=== PATIENT | male | born 1965 | race Two or more races ===

== ENCOUNTER 2019-04-10 09:39 | Inpatient (IN) | payer MEDICAID, OTHER ==
[~2019-04-10] VITALS: Ht 162.6 cm; Wt 65.8 kg
[~2019-04-10 09:39] MED LIST: BUPR300T52 PO; OLAN15TA3 PO
--- NOTE | 2019-04-10 09:50 | NUR ---
BIB SELF 53 YEAR OLD MAKE C/O LOWER ABDOMINAL PAIN W/ N/V STARTED AT 0300. DIARRHEA X 3 DAYS. ALERT AND ORIENTED X4 BREATHING EVEN AND UNLABORED WITH NO DISTRESS NOTED. PATIENT IS AMBULATORY. SKIN INTACT. WAITING TO BE SEEN BY
[2019-04-10] MEDS ORDERED: MORPHINE SULFATE INJ 4 MG/ML DISP.SYRIN ONE (10:06)
[2019-04-10] MEDS ORDERED: ONDANSETRON HCL/PF 4 MG/2 ML VIAL ONE (10:06)
[2019-04-10 10:15] LABS: BASOPHILS # (AUTO) 0.1 /CMM (0.0-0.2); BASOPHILS % (AUTO) 0.8 % (0.0-2.0); EOSINOPHILS % (AUTO) 0.1 % (0.0-6.0); HEMATOCRIT 50 % (39-51); HEMOGLOBIN 17.7 g/dL (13.5-17.5); LYMPHOCYTES % (AUTO) 9.6 % (20.0-44.0); MEAN CORPUSCULAR HGB CONC 35 g/dl (31.0-36.0); MEAN CORPUSCULAR VOLUME 101 fL (80-96); MONOCYTES # (AUTO) 0.4 /CMM (0.1-1.30); MONOCYTES % (AUTO) 3.9 % (2.0-12.0); NEUTROPHILS % (AUTO) 85.6 % (43.0-81.0); PLATELET COUNT (AUTO) 277 /CMM (150-450); RED BLOOD CELL COUNT(AUTO) 5.01 MIL/uL (4.5-6.0); WHITE BLOOD COUNT (AUTO) 10.5 K/uL (4.3-11.0)
--- NOTE | 2019-04-10 10:18 | NUR ---
RAD AT BEDSIDE TO TAKE PATIENT FOR CT SCAN
[2019-04-10 10:26] LABS: CALCIUM, SERUM 10.1 mg/dL (8.5-10.1); CREATININE 1.2 mg/dL (0.6-1.3); POTASSIUM 3.6 mmol/L (3.5-5.1)
[2019-04-10] MEDS ORDERED: IV NS 0.9% 1,000 ML BAG IV ONE ×2 (10:30→11:30)
[2019-04-10] MEDS ORDERED: ONDANSETRON HCL/PF 4 MG/2 ML VIAL IVP ONE (10:30)
[2019-04-10] MEDS ORDERED: MORPHINE SULFATE INJ 2 MG/ML DISP.SYRIN IV ONE (10:30)
[2019-04-10 10:31] LABS: ALBUMIN 4.8 g/dL (3.4-5.0); BILIRUBIN,DIRECT 0.2 mg/dL (0.0-0.2); TOTAL PROTEIN, SERUM 8.8 g/dL (6.4-8.2)
[2019-04-10] MEDS ORDERED: METRONIDAZOLE 500MG/ NS 100ML 100 ML IV ONE (11:21)
[2019-04-10] MEDS ORDERED: FLAGYL/NS RTU 500 MG/100 ML PIGGYBACK IV ONE (11:30)
[2019-04-10] MEDS ORDERED: PIPERACILLIN /TAZOBACTAM 3.375 G in IV D5W 50 ML IV ONE (11:30)
--- NOTE | 2019-04-10 12:03 | NUR ---
CALLED [facility], PAGED RASHID ALAS
--- NOTE | 2019-04-10 12:26 | NUR ---
CALLED NURSING SUP FOR MEDSURG BED
[2019-04-10] MEDS ORDERED: HYDROCODONE/APAP 5/325MG 1 EACH TABLET PO PRN (12:30)
[2019-04-10] MEDS ORDERED: ACETAMINOPHEN 325 MG TABLET PO PRN (12:30)
[2019-04-10] MEDS ORDERED: Z GUARD REMEDY 2 OZ OINT TP PRN (12:30)
[2019-04-10] MEDS ORDERED: MAG HYDROX/AL HYDROX/SIMETH 30 ML UDC PO PRN (12:30)
[2019-04-10] MEDS ORDERED: ONDANSETRON HCL/PF 4 MG/2 ML VIAL IVP PRN (12:30)
[2019-04-10] MEDS ORDERED: MAGNESIUM HYDROXIDE 30 ML UDC PO PRN (12:30)
[2019-04-10] MEDS ORDERED: MORPHINE SULFATE INJ 2 MG/ML DISP.SYRIN IV PRN (12:30)
--- NOTE | 2019-04-10 12:45 | NUR ---
REPORT GIVEN TO ELIZABETH TO CONTINUE MANISHA
--- NOTE | 2019-04-10 13:15 | NUR ---
MS RN OPENING NOTES RECEIVED PATIENT VIA GURSTEW. REPORT GIVEN BY BABAK NURSE. PATIENT ALERT AND ORIENTED X4. PATIENT STATED HE WAS ON HIS WAY TO SCHOOL RIDING A BUS THEN HE VOMITED. PATIENT COMPLAINED OF MID AND LOWER ABD PAIN WITH ASSOCIATED N/V. AMBULATORY WITH UNSTEADY GAIT, WEAK. PATIENT STATES HE'S A SMOKER BUT WILL NOT SMOKE DURING HOSPITALIZATION. RIGHT AC # 18 INTACT AND PATENT. ALL BELONGINGS ACCOUNTED FOR. SKIN ASSESSMENT DONE WITH SKIN INTACT. ORIENTED PATIENT TO ROOM, CALL LIGHT AND ENVIRONMENT. PATIENT SEEN AND EXAMINED BY DR. ALAS. BED IN LOWEST POSITION, LOCKED. CALL LIGHT WITHIN REACH. BED ALARM ON.
[2019-04-10] MEDS: IV D5/0.45 NACL 1,000 ML IV PRN (14:17)
[2019-04-10] MEDS: ENOXAPARIN SODIUM 40 MG/0.4 ML DISP.SYRIN SQ SCH (14:53)
[2019-04-10 16:05] VITALS: BP 119/65
[2019-04-10] MEDS: PIPERACILLIN /TAZOBACTAM 3.375 G in IV D5W 50 ML IV SCH ×2 (18:10→23:30)
[2019-04-10] MEDS: OLANZAPINE 10 MG TABLET PO SCH (18:10)
--- NOTE | 2019-04-10 18:34 | NUR ---
MS RN CLOSING NOTES ALERT AND ORIENTED X4. NO SOB. ON O2 VIA NC @ 2L/MIN JESICA WELL. DENIES ANY C/O PAIN NOR DISCOMFORT AT THIS TIME. ALISHA PICC LINE DOUBLE LUMEN INTACT AND PATENT, DRESSING CHANGE JESICA WELL. RIGHT JUGULAR CATHETER SITE INTACT, DRESSING CHANGED BY DIALYSIS NURSE. PATIENT CURRENTLY RECEIVING DIALYSIS TREATMENT AT THIS TIME. ABLE TO VERBALIZE NEEDS. IN NO APPARENT DISTRESS. BED IN LOWEST POSITION. CALL LIGHT WITHIN REACH. PATIENT ABLE TO VERBALIZE NEEDS. IN NO APPARENT DISTRESS. ENDORSED TO ONCOMING NURSE FOR CONTINUITY OF CARE. Addendum: 04/10/19 at 183 by VIRA HOFFMANN RN ERROR ENTRY IN CHARTING Addendum: 04/10/19 at 1847 by VIRA HOFFMANN RN ERROR ENTRY CHARTING FOR 1847
--- NOTE | 2019-04-10 18:34 | NUR ---
DISREGARD CHARTING FOR 183. ERROR ENTRY.
--- NOTE | 2019-04-10 18:44 | NUR ---
MS RN CLOSING NOTES PATIENT RESTING COMFORTABLY IN BED. NO SOB. HOB ELEVATED. DENIES ANY C/O PAIN NOR DISCOMFORT AT THIS TIME. NO OTHER EPISODE OF N/V/D OBSERVED DURING THE SHIFT. RIGHT AC # 18 INTACT AND PATENT INFUSING D5 1/2 NS @ 75 ML/HR JESICA WELL. BED IN LOWEST POSITION, LOCKED. CALL LIGHT WITHIN REACH. IN NO APPARENT DISTRESS.
--- NOTE | 2019-04-10 19:00 | NUR ---
RN MS OPENING NOTES RECEIVED PATIENT IN BED AWAKE ALERT AND ORIENTED X4, VERBALLY RESPONSIVE, RESPIRATIONS EVEN AND UNLABORED WITH EQUAL RISE AND FALL OF CHEST, DENIES ANY PAIN OR DISCOMFORT AT THIS TIME, DENIES NAUSEA AT THIS TIME, IV TO RIGHT AC #18G INTACT AND PATENT, NO REDNESS, NO INFILTRATION , IVF RUNNING ORDERED, PATIENT AWARE OF CLEAR LIQUID DIET ORDERED, ORIENTED TO STAFF AND CALL LIGHT AND KEPT WITHIN REACH, SAFETY PRECAUTIONS IN PLACE, LOW BED AND LOCKED, TOILETING AND FLUIDS OFFERED ALL NEEDS ATTENDED AT THIS TIME WILL CONTINUE TO MONITOR AND ATTEND TO NEEDS.
[2019-04-10 20:00] VITALS: BP 98/51
[2019-04-10] MEDS: METRONIDAZOLE 500MG/ NS 100ML 500 MG in PREMIX 1 EA IV SCH (20:05)
[2019-04-10] MEDS: SIMVASTATIN 10 MG TABLET PO SCH (21:45)
[2019-04-11] MEDS: METRONIDAZOLE 500MG/ NS 100ML 500 MG in PREMIX 1 EA IV SCH ×3 (03:23→20:11)
[2019-04-11] MEDS: PIPERACILLIN /TAZOBACTAM 3.375 G in IV D5W 50 ML IV SCH ×4 (05:10→23:57)
[2019-04-11] MEDS: IV D5/0.45 NACL 1,000 ML IV PRN (05:14)
--- NOTE | 2019-04-11 06:23 | NUR ---
RN MS CLOSING NOTES PATIENT IN BED AWAKE ALERT AND ORIENTED X4, VERBALLY RESPONSIVE, RESPIRATIONS EVEN AND UNLABORED WITH EQUAL RISE AND FALL OF CHEST, DENIES ANY PAIN OR DISCOMFORT AT THIS TIME, DENIES NAUSEA AT THIS TIME, IV TO RIGHT AC #18G INTACT AND PATENT, NO REDNESS, NO INFILTRATION , IVF RUNNING ORDERED, CALL LIGHT KEPT WITHIN REACH, SAFETY PRECAUTIONS IN PLACE, LOW BED AND LOCKED, BED ALARM IN PLACE, URINAL WITHIN REACH , NO BM THIS SHIFT , FLUIDS OFFERED ALL NEEDS ATTENDED AT THIS TIME WILL CONTINUE TO MONITOR AND ATTEND TO NEEDS AND ENDORSE TO NEXT SHIFT FOR CONTINUITY OF CARE. PATIENT AWARE NEED STOOL COLLECTION ORDERED BY .
[2019-04-11 06:54] LABS: BASOPHILS % (AUTO) 0.3 % (0.0-2.0); EOSINOPHILS % (AUTO) 1.2 % (0.0-6.0); HEMATOCRIT 41 % (39-51); LYMPHOCYTES # (AUTO) 2.7 /CMM (0.8-4.8); LYMPHOCYTES % (AUTO) 23.4 % (20.0-44.0); MEAN CORPUSCULAR HGB CONC 34 g/dl (31.0-36.0); MEAN CORPUSCULAR VOLUME 101 fL (80-96); MONOCYTES # (AUTO) 0.8 /CMM (0.1-1.30); NEUTROPHILS # (AUTO) 7.9 /CMM (1.8-8.9); NEUTROPHILS % (AUTO) 68.1 % (43.0-81.0); PLATELET COUNT (AUTO) 219 /CMM (150-450); RED BLOOD CELL COUNT(AUTO) 4.06 MIL/uL (4.5-6.0); WHITE BLOOD COUNT (AUTO) 11.6 K/uL (4.3-11.0)
[2019-04-11 07:10] LABS: CALCIUM, SERUM 8.5 mg/dL (8.5-10.1); CREATININE 1.1 mg/dL (0.6-1.3); MAGNESIUM 2.2 mg/dL (1.8-2.4); PHOSPHORUS 2.7 mg/dL (2.5-4.9); POTASSIUM 3.7 mmol/L (3.5-5.1)
[2019-04-11 07:20] LABS: THYROID STIMULATING HORMONE 0.627 uIU/mL (0.358-3.74)
--- NOTE | 2019-04-11 07:51 | NUR ---
RN OPENING NOTES PT AWAKE AND RESTING IN BED. NO APPARENT S/S OF PAIN, DISTRESS OR SOB AT THIS TIME. PT HAS RIGHT AC #18 RUNNING D51/2NS @75ML/HR. PT ON CLEAR LIQUIDS AT THIS TIME. PER PATIENT "FEELING AT LOT BETTER TODAY". SAFETY PRECAUTIONS IN PLACE, BED IN LOWEST LOCKED POSITION, X2 SIDE RAILS UP AND CALL LIGHT WITHIN REACH. WILL CONTINUE TO MONITOR.
[2019-04-11 08:00] VITALS: BP 92/54
[2019-04-11] MEDS: ENOXAPARIN SODIUM 40 MG/0.4 ML DISP.SYRIN SQ SCH (08:51)
[2019-04-11] MEDS: NICOTINE PATCH (7MG) 7 MG PATCH.TD24 TD SCH (08:51)
[2019-04-11] MEDS: ASPIRIN EC 81 MG TABLET.DR PO SCH (08:51)
[2019-04-11] MEDS: PANTOPRAZOLE 40 MG VIAL IV SCH (08:51)
[2019-04-11] MEDS: BUPROPION XL 150 MG TAB.ER.24 PO SCH (08:51)
[2019-04-11 15:25] LABS: OCCULT BLOOD STOOL NEGATIVE (NEGATIVE)
[2019-04-11 16:00] VITALS: BP 129/71
[2019-04-11] MEDS: OLANZAPINE 10 MG TABLET PO SCH (18:16)
--- NOTE | 2019-04-11 19:00 | NUR ---
RN MS OPENING NOTES RECEIVED PATIENT IN BED AWAKE ALERT AND ORIENTED X4, VERBALLY RESPONSIVE, RESPIRATIONS EVEN AND UNLABORED WITH EQUAL RISE AND FALL OF CHEST, DENIES ANY PAIN OR DISCOMFORT AT THIS TIME, DENIES NAUSEA AT THIS TIME, IV TO RIGHT AC #18G INTACT AND PATENT, NO REDNESS, NO INFILTRATION , IVF RUNNING ORDERED, ORIENTED TO STAFF AND CALL LIGHT AND KEPT WITHIN REACH, SAFETY PRECAUTIONS IN PLACE, LOW BED AND LOCKED, TOILETING AND FLUIDS OFFERED ALL NEEDS ATTENDED AT THIS TIME WILL CONTINUE TO MONITOR AND ATTEND TO NEEDS. PATIENT AWARE NEED STOOL SAMPLE.
--- NOTE | 2019-04-11 19:21 | NUR ---
RN CLOSING NOTES PT AWAKE AND RESTING IN BED. NO APPARENT S/S OF PAIN, DISTRESS OR SOB AT THIS TIME. PT HAS RIGHT AC #18 RUNNING D51/2NS @75ML/HR. SAFETY PRECAUTIONS IN PLACE, BED IN LOWEST LOCKED POSITION, X2 SIDE RAILS UP AND CALL LIGHT WITHIN REACH. WILL ENDORSE TO RELAY ADJUSTER NURSE FOR CONTINUITY OF CARE.
[2019-04-11 20:00] VITALS: BP 134/75
[2019-04-11 20:45] VITALS: BP 134/75
[2019-04-11] MEDS: SIMVASTATIN 10 MG TABLET PO SCH (22:06)
[2019-04-12] MEDS: IV D5/0.45 NACL 1,000 ML IV PRN (02:08)
[2019-04-12] MEDS: METRONIDAZOLE 500MG/ NS 100ML 500 MG in PREMIX 1 EA IV SCH ×3 (03:31→19:54)
[2019-04-12] MEDS: PIPERACILLIN /TAZOBACTAM 3.375 G in IV D5W 50 ML IV SCH ×4 (05:30→23:53)
--- NOTE | 2019-04-12 06:30 | NUR ---
RN MS CLOSING NOTES PATIENT IN BED AWAKE ALERT AND ORIENTED X4, VERBALLY RESPONSIVE, RESPIRATIONS EVEN AND UNLABORED WITH EQUAL RISE AND FALL OF CHEST, DENIES ANY PAIN OR DISCOMFORT AT THIS TIME, DENIES NAUSEA AT THIS TIME, IV TO RIGHT AC #18G INTACT AND PATENT, NO REDNESS, NO INFILTRATION , IVF RUNNING ORDERED, CALL LIGHT KEPT WITHIN REACH, SAFETY PRECAUTIONS IN PLACE, LOW BED AND LOCKED, TOILETING AND FLUIDS OFFERED ALL NEEDS ATTENDED AT THIS TIME WILL CONTINUE TO MONITOR AND ATTEND TO NEEDS. PATIENT AWARE NEED STOOL SAMPLE HAD BOWEL MOVEMENT HOWEVER NOT ENOUGH FOR LAB SPECIMEN, WILL CONTINUE TO MONITOR AND ENDORSE TO NEXT SHIFT.
[2019-04-12 07:30] VITALS: BP 125/77
[2019-04-12 07:47] LABS: BASOPHILS # (AUTO) 0.1 /CMM (0.0-0.2); BASOPHILS % (AUTO) 0.7 % (0.0-2.0); EOSINOPHILS % (AUTO) 1.9 % (0.0-6.0); HEMATOCRIT 41 % (39-51); HEMOGLOBIN 13.8 g/dL (13.5-17.5); LYMPHOCYTES # (AUTO) 2.2 /CMM (0.8-4.8); LYMPHOCYTES % (AUTO) 30.3 % (20.0-44.0); MEAN CORPUSCULAR HGB CONC 34 g/dl (31.0-36.0); MEAN CORPUSCULAR VOLUME 101 fL (80-96); MONOCYTES # (AUTO) 0.6 /CMM (0.1-1.30); MONOCYTES % (AUTO) 8.6 % (2.0-12.0); NEUTROPHILS # (AUTO) 4.2 /CMM (1.8-8.9); NEUTROPHILS % (AUTO) 58.5 % (43.0-81.0); PLATELET COUNT (AUTO) 212 /CMM (150-450); RED BLOOD CELL COUNT(AUTO) 4.02 MIL/uL (4.5-6.0); WHITE BLOOD COUNT (AUTO) 7.2 K/uL (4.3-11.0)
[2019-04-12 08:11] LABS: CALCIUM, SERUM 8.6 mg/dL (8.5-10.1); CREATININE 1.1 mg/dL (0.6-1.3); MAGNESIUM 2.2 mg/dL (1.8-2.4); PHOSPHORUS 2.9 mg/dL (2.5-4.9); POTASSIUM 3.4 mmol/L (3.5-5.1)
[2019-04-12] MEDS: NICOTINE PATCH (7MG) 7 MG PATCH.TD24 TD SCH (09:35)
[2019-04-12] MEDS: BUPROPION XL 150 MG TAB.ER.24 PO SCH (09:36)
[2019-04-12] MEDS: ASPIRIN EC 81 MG TABLET.DR PO SCH (09:36)
[2019-04-12] MEDS: ENOXAPARIN SODIUM 40 MG/0.4 ML DISP.SYRIN SQ SCH (09:36)
[2019-04-12] MEDS: PANTOPRAZOLE 40 MG VIAL IV SCH (09:36)
[2019-04-12] MEDS ORDERED: SIMV10TA98 PO (09:38)
[2019-04-12] MEDS ORDERED: ASPI-1152 PO (09:38)
[2019-04-12] MEDS ORDERED: METR500T PO (09:38)
[2019-04-12] MEDS ORDERED: CIPR500T5 PO (09:38)
[2019-04-12] MEDS ORDERED: POTASSIUM CHLORIDE 20 MEQ TAB.PRT.SR PO SCH (11:00)
[2019-04-12] MEDS: POTASSIUM CL. PREMIX PERIPHER. 50 ML IV SCH ×2 (11:50→12:00)
[2019-04-12] MEDS ORDERED: POTASSIUM CHLORIDE 20 MEQ TAB.PRT.SR PO ONE (13:30)
[2019-04-12] MEDS ORDERED: PEG 3350/NA SULF,BICARB,CL/KCL 4,000 ML BOTTLE PO ONE (15:00)
[2019-04-12] MEDS ORDERED: MAGNESIUM CITRATE 296 ML BOTTLE PO ONE (15:00)
[2019-04-12] MEDS ORDERED: NA PHOS,M-B/NA PHOS,DI-BA 1 EA ENEMA RC PRN (15:00)
[2019-04-12 16:00] VITALS: BP 146/95
[2019-04-12] MEDS: OLANZAPINE 10 MG TABLET PO SCH (17:22)
[2019-04-12 18:26] LABS: IRON, SERUM 109 ug/dl (50-175); TOTAL IRON BINDING CAPACITY 226 ug/dl (250-450)
[2019-04-12 18:40] LABS: FERRITIN 180 ng/mL (8-388)
--- NOTE | 2019-04-12 19:00 | NUR ---
RN MS OPENING NOTES RECEIVED PATIENT IN BED AWAKE ALERT AND ORIENTED X4, VERBALLY RESPONSIVE, RESPIRATIONS EVEN AND UNLABORED WITH EQUAL RISE AND FALL OF CHEST, DENIES ANY PAIN OR DISCOMFORT AT THIS TIME, DENIES NAUSEA AT THIS TIME, IV TO RIGHT AC #18G INTACT AND PATENT, NO REDNESS, NO INFILTRATION , IVF RUNNING ORDERED, ORIENTED TO STAFF AND CALL LIGHT AND KEPT WITHIN REACH, SAFETY PRECAUTIONS IN PLACE, LOW BED AND LOCKED, TOILETING AND FLUIDS OFFERED ALL NEEDS ATTENDED AT THIS TIME WILL CONTINUE TO MONITOR AND ATTEND TO NEEDS AND FOLLOW MD ORDERS.
[2019-04-12 20:00] VITALS: BP 134/85
[2019-04-12] MEDS: SIMVASTATIN 10 MG TABLET PO SCH (21:26)
--- NOTE | 2019-04-12 21:51 | NUR ---
RN MS NOTES PER BREEZY ELECTRIC ORGAN ASSEMBLER NEW ORDER TO STOP COLONOSCOPY PREP AND RESUME REGULAR DIET, PATIENT MADE AWARE.
[2019-04-13] MEDS: METRONIDAZOLE 500MG/ NS 100ML 500 MG in PREMIX 1 EA IV SCH ×2 (04:02→11:00)
[2019-04-13] MEDS: IV D5/0.45 NACL 1,000 ML IV PRN (04:03)
[2019-04-13] MEDS: PIPERACILLIN /TAZOBACTAM 3.375 G in IV D5W 50 ML IV SCH ×4 (06:02→23:35)
--- NOTE | 2019-04-13 06:27 | NUR ---
RN MS CLOSING NOTES PATIENT IN BED AWAKE ALERT AND ORIENTED X4, VERBALLY RESPONSIVE, RESPIRATIONS EVEN AND UNLABORED WITH EQUAL RISE AND FALL OF CHEST, DENIES ANY PAIN OR DISCOMFORT AT THIS TIME, DENIES NAUSEA AT THIS TIME, IV TO RIGHT AC #18G INTACT AND PATENT, NO REDNESS, NO INFILTRATION , IVF RUNNING ORDERED, ABX GIVEN ORDERED,CALL LIGHT KEPT WITHIN REACH, SAFETY PRECAUTIONS IN PLACE, LOW BED AND LOCKED, TOILETING AND FLUIDS OFFERED,ALL NEEDS ATTENDED AT THIS TIME WILL CONTINUE TO MONITOR AND ENDORSE TO NEXT SHIFT.
[2019-04-13 07:04] LABS: BASOPHILS # (AUTO) 0.1 /CMM (0.0-0.2); BASOPHILS % (AUTO) 0.7 % (0.0-2.0); EOSINOPHILS % (AUTO) 1.9 % (0.0-6.0); HEMATOCRIT 42 % (39-51); HEMOGLOBIN 14.3 g/dL (13.5-17.5); LYMPHOCYTES # (AUTO) 1.8 /CMM (0.8-4.8); LYMPHOCYTES % (AUTO) 19.4 % (20.0-44.0); MEAN CORPUSCULAR HGB CONC 34 g/dl (31.0-36.0); MEAN CORPUSCULAR VOLUME 100 fL (80-96); MONOCYTES # (AUTO) 0.7 /CMM (0.1-1.30); MONOCYTES % (AUTO) 7.6 % (2.0-12.0); NEUTROPHILS # (AUTO) 6.5 /CMM (1.8-8.9); NEUTROPHILS % (AUTO) 70.4 % (43.0-81.0); PLATELET COUNT (AUTO) 218 /CMM (150-450); RED BLOOD CELL COUNT(AUTO) 4.19 MIL/uL (4.5-6.0); WHITE BLOOD COUNT (AUTO) 9.2 K/uL (4.3-11.0)
[2019-04-13 07:14] LABS: CALCIUM, SERUM 8.8 mg/dL (8.5-10.1); MAGNESIUM 2.5 mg/dL (1.8-2.4); PHOSPHORUS 3.4 mg/dL (2.5-4.9); POTASSIUM 3.3 mmol/L (3.5-5.1)
--- NOTE | 2019-04-13 07:23 | NUR ---
RN OPENING NOTE PT WAS RECEIVED IN BED AT LOWEST AND LOCKED POSITION WITH SIDE RAILS UPX2, A/O X4 BREATHING EVEN AND UNLABORED ON RA WITH NO S/S OF ANY DISTRESS OR PAIN AT THIS TIME, IV IS PATENT AND INTACT WITH IVF RUNNING, PER NIGHT RN COLONOSCOPY WAS CANCELED UNTIL C.DIFF RESULTS COMEBACK AND PT WAS PLACED ON A REGULAR DIET, SAFETY PRECAUTIONS IN PLACE, CALL LIGHT WITHIN REACH, WILL MONITOR PT ACCORDINGLY
[2019-04-13 08:00] VITALS: BP 142/80
[2019-04-13] MEDS: NICOTINE PATCH (7MG) 7 MG PATCH.TD24 TD SCH (08:02)
[2019-04-13] MEDS: ASPIRIN EC 81 MG TABLET.DR PO SCH (08:02)
[2019-04-13] MEDS: BUPROPION XL 150 MG TAB.ER.24 PO SCH (08:02)
[2019-04-13] MEDS: PANTOPRAZOLE 40 MG VIAL IV SCH (08:02)
[2019-04-13] MEDS: ENOXAPARIN SODIUM 40 MG/0.4 ML DISP.SYRIN SQ SCH (08:03)
--- NOTE | 2019-04-13 10:36 | NUR ---
RN NOTE PHARMACY WAS CALLED ABOUT REPLACING POTASSIUM, THEY STATED THEY WILL REPLACE IT LATER ONCE THEY HAVE A CHANCE TO DO THEM. WILL AWAIT
[2019-04-13] MEDS ORDERED: POTASSIUM CHLORIDE 20 MEQ TAB.PRT.SR PO SCH (11:30)
[2019-04-13 16:00] VITALS: BP 137/88
[2019-04-13] MEDS: OLANZAPINE 10 MG TABLET PO SCH (17:29)
--- NOTE | 2019-04-13 18:15 | NUR ---
RN CLOSING NOTE PT IN BED AT LOWEST AND LOCKED POSITION WITH SIDE RAILS UPX2, A/O X4 BREATHING EVEN AND UNLABORED ON RA WITH NO S/S OF ANY DISTRESS OR PAIN AT THIS TIME, IV IS PATENT AND INTACT WITH IVF RUNNING, PLAN FOR EGD/COLONOSCOPY TOMORROW CONSENTS SIGNED, SAFETY PRECAUTIONS IN PLACE, CALL LIGHT WITHIN REACH, ALL NEEDS ATTENDED TO, WILL ENDORSE TO NIGHT RN FOR MANISHA.
--- NOTE | 2019-04-13 19:45 | NUR ---
MS RN RECEIVE PT IN BED PT AWAKE A/O X 4, STABLE AND NOT IN DISTRESS. NO SOB. NO C/O OF PAIN. WILL CONT TO MTR
[2019-04-13 20:00] VITALS: BP 127/83
[2019-04-13] MEDS ORDERED: MAGNESIUM CITRATE 296 ML BOTTLE PO ONE (20:00)
[2019-04-13] MEDS: SIMVASTATIN 10 MG TABLET PO SCH (22:39)
[2019-04-13] MEDS: METRONIDAZOLE 500 MG TABLET PO SCH (22:39)
[2019-04-13] MEDS ORDERED: MAGNESIUM CITRATE 296 ML BOTTLE ONE (22:47)
[2019-04-14] MEDS: IV D5/0.45 NACL 1,000 ML IV PRN ×2 (03:14→17:10)
[2019-04-14] MEDS: METRONIDAZOLE 500 MG TABLET PO SCH ×2 (05:00→12:21)
[2019-04-14] MEDS: PIPERACILLIN /TAZOBACTAM 3.375 G in IV D5W 50 ML IV SCH ×4 (05:12→23:08)
--- NOTE | 2019-04-14 06:09 | NUR ---
MS RN ASLEEP AND EASILY AWAKEN, AM CARE RENDERED. NO S/S OF DISTRESS, NO C/O OF PAIN AT THIS TIME. NURSING CARE RENDERED, KEPT CLEAN AND DRY AND COMFORTABLE. NEEDS ATTENDED AND ANTICIPATED. MAINTAINS NPO MIDNIGHT. BOWEL MOVEMENT IS CLEAR YELLOWISH WITH NO PARTICLES AT THIS TIME. SAFETY MEASURES AT ALL TIMES. ENDORSE TO THE NEXT SHIFT.
--- NOTE | 2019-04-14 06:46 | NUR ---
MS RN PLAN EGD/ COLONOSCOPY TODAY, BOWEL PREP DONE, STOOL CLEAR
[2019-04-14 07:02] LABS: BASOPHILS # (AUTO) 0.1 /CMM (0.0-0.2); BASOPHILS % (AUTO) 0.7 % (0.0-2.0); EOSINOPHILS % (AUTO) 2.6 % (0.0-6.0); HEMATOCRIT 46 % (39-51); HEMOGLOBIN 15.2 g/dL (13.5-17.5); LYMPHOCYTES # (AUTO) 1.6 /CMM (0.8-4.8); LYMPHOCYTES % (AUTO) 17.4 % (20.0-44.0); MEAN CORPUSCULAR HGB CONC 34 g/dl (31.0-36.0); MEAN CORPUSCULAR VOLUME 101 fL (80-96); MONOCYTES # (AUTO) 0.7 /CMM (0.1-1.30); MONOCYTES % (AUTO) 7.1 % (2.0-12.0); NEUTROPHILS # (AUTO) 6.6 /CMM (1.8-8.9); NEUTROPHILS % (AUTO) 72.2 % (43.0-81.0); PLATELET COUNT (AUTO) 228 /CMM (150-450); RED BLOOD CELL COUNT(AUTO) 4.52 MIL/uL (4.5-6.0); WHITE BLOOD COUNT (AUTO) 9.2 K/uL (4.3-11.0)
[2019-04-14 07:25] LABS: CREATININE 0.9 mg/dL (0.6-1.3); MAGNESIUM 2.3 mg/dL (1.8-2.4); PHOSPHORUS 3.3 mg/dL (2.5-4.9); POTASSIUM 3.9 mmol/L (3.5-5.1)
--- NOTE | 2019-04-14 07:30 | NUR ---
MS RN OPENING NOTES RECEIVED PATIENT IN BED RESTING COMFORTABLY IN MODERATE HIGH BACK REST. A/O X 4. IV FLUIDS ON RIGHT AC #18 WITH D5 1/2 NS@ 75 ML/HR. PATENT AND INTACT. SAFETY MEASURES IN PLACE, BED IN LOW LOCKED POSITION WITH SIDE RAILS UP X 2. CALL LIGHT WITHIN REACH. WILL CONT TO MONITOR.
[2019-04-14 08:00] VITALS: BP 134/90
[2019-04-14] MEDS: NICOTINE PATCH (7MG) 7 MG PATCH.TD24 TD SCH (08:20)
[2019-04-14] MEDS: PANTOPRAZOLE 40 MG VIAL IV SCH (08:20)
[2019-04-14] MEDS: BUPROPION XL 150 MG TAB.ER.24 PO SCH (09:00)
[2019-04-14] MEDS: ASPIRIN EC 81 MG TABLET.DR PO SCH (09:00)
--- NOTE | 2019-04-14 10:30 | NUR ---
RN NOTES CALLED THE [facility] @10:15 TO ASK WHAT TIME IS THE EGD/COLONOSCOPY, THEY SAID THAT THE PATIENT IS NOT ON SCHEDULE. CALLED BREEZY RAMSAY @10:20 TO INFORMED, AND SHE ORDERED TO RESUME DIET FOR PATIENT.
[2019-04-14] MEDS: ENOXAPARIN SODIUM 40 MG/0.4 ML DISP.SYRIN SQ SCH (10:44)
--- NOTE | 2019-04-14 11:43 | NUR ---
Social service consult requested by LENA Bustillos regarding pt. does not have enough food to eat and has to skip meals. Pt. is a 53 year old male who was admitted to [facility] on 04/10 for colitis. SIL met with the pt. bedside. Pt. is alert and oriented x 4. Pt. was sitting upright on his bed. Pt. is well-groomed. Pt. states he lives in an apartment in [place] that was provided by [facility]. Pt. receives food stamps and GR. However, pt. states all his money goes in paying his rent and bills and therefore he rarely has any money left over for food once his food stamps are used for the month. SIL gave pt. the following list of Food chapa in the area: [facility] [employer] [place] [address] ; [facility] [place] [address] ; [facility] [place] [address] . Pt. informed SW he is no longer with [facility], because they closed his case. Pt. is not sure as to why they did. Pt. has a psychiatric diagnosis of Bipolar Schizoaffective Disorder. Pt. is currently not taking any medications. Pt. stated [facility] moved to a different address. SIL contacted [facility] , and gave pt. their new address, [address] [place] [address] [address], [place]. [place]. SIL also gave pt. referral list to mental health clinics, [facility] and [facility] . Pt. currently denies suicidal and homicidal ideations and visual/auditory hallucinations at this time. Pt. is going to school to become a [employer]. No other social service needs are requested at this time. SW is available, if needed.
[2019-04-14 16:00] VITALS: BP 129/93
--- NOTE | 2019-04-14 16:30 | NUR ---
RN NOTES SEEN AND EXAMINED BY BREEZY RAMSAY NP. ORDERED TO CHANGE DIET TO REGULAR DIET AND FOR CASE MANAGEMENT CONSULT FOR GI FOLLOW UP OUTPATIENT. ORDERS MADE AND CARRIED OUT.
[2019-04-14] MEDS: OLANZAPINE 10 MG TABLET PO SCH (17:03)
--- NOTE | 2019-04-14 18:57 | NUR ---
MS RN CLOSING NOTES PATIENT IN BED RESTING COMFORTABLY IN MODERATE HIGH BACK REST. A/O X 4. ON RA, TOLERATING WELL. IV FLUIDS ON LEFT AC #20 WITH NS@ 75 ML/HR. PATENT AND INTACT. ALL NURSING NEEDS ATTENDED. SAFETY MEASURES IN PLACE, BED IN LOW LOCKED POSITION WITH SIDE RAILS UP X 2. CALL LIGHT WITHIN REACH. PATIENT FOR DISCHARGE TONIGHT. WILL ENDORSED TO HOME APPLIANCES MECHANIC NURSE.
--- NOTE | 2019-04-14 19:05 | NUR ---
MS RN NOTE RECEIVED PT IN STABLE CONDITION A/O X4, CURRENTLY WATCHING TV. NO SIGNS OF SOB OR DISTRESS, NO C/O PAIN OR N/V. IV IN R AC PATENT AND INTACT WITH IVF INFUSING. ALL CURRENT NEEDS ATTENDED TO. BED LOW, LOCKED, UPPER RAILS UP, CALL LIGHT WITHIN REACH. WILL CONT. TO MONITOR.
--- NOTE | 2019-04-14 19:15 | NUR ---
MS RN NOTE PT STATES HE [place]IVES [place] FIRES AND UNEASY TO GO HOME TONIGHT VIA BUS. JOB WALLACE NOTIFIED AND IS OK WITH D/C IN AM.
[2019-04-14] MEDS: SIMVASTATIN 10 MG TABLET PO SCH (21:21)
--- NOTE | 2019-04-14 21:22 | NUR ---
MS RN NOTE TRIED TO SCAN 2200 DOSE OF [employer]. WHEN SCANNED, IT SAYS UNKNOWN NDC NUMBER. MANUALLY ADMINISTERED ON EMR.
[2019-04-15] MEDS: PIPERACILLIN /TAZOBACTAM 3.375 G in IV D5W 50 ML IV SCH (05:06)
--- NOTE | 2019-04-15 06:17 | NUR ---
MS RN NOTE PT RECEIVED IN STABLE CONDITION A/O X4, CURRENTLY RESTING IN BED. NO SIGNS OF SOB OR DISTRESS, NO C/O PAIN OR N/V. IV IN R AC PATENT AND INTACT WITH IVF INFUSING. ALL CURRENT NEEDS ATTENDED TO. BED LOW, LOCKED, UPPER RAILS UP, CALL LIGHT WITHIN REACH. WILL CONT. TO MONITOR AND ENDORSE TO NEXT SHIFT FOR MANISHA.
[2019-04-15 07:21] LABS: BASOPHILS # (AUTO) 0.1 /CMM (0.0-0.2); BASOPHILS % (AUTO) 1.1 % (0.0-2.0); EOSINOPHILS % (AUTO) 3.9 % (0.0-6.0); HEMATOCRIT 49 % (39-51); HEMOGLOBIN 16.7 g/dL (13.5-17.5); LYMPHOCYTES % (AUTO) 27.6 % (20.0-44.0); MEAN CORPUSCULAR HGB CONC 34 g/dl (31.0-36.0); MEAN CORPUSCULAR VOLUME 101 fL (80-96); MONOCYTES # (AUTO) 0.6 /CMM (0.1-1.30); MONOCYTES % (AUTO) 8.6 % (2.0-12.0); NEUTROPHILS # (AUTO) 4.3 /CMM (1.8-8.9); NEUTROPHILS % (AUTO) 58.8 % (43.0-81.0); PLATELET COUNT (AUTO) 229 /CMM (150-450); RED BLOOD CELL COUNT(AUTO) 4.91 MIL/uL (4.5-6.0); WHITE BLOOD COUNT (AUTO) 7.3 K/uL (4.3-11.0)
[2019-04-15 07:39] LABS: CALCIUM, SERUM 9.9 mg/dL (8.5-10.1); CREATININE 1.1 mg/dL (0.6-1.3); MAGNESIUM 2.3 mg/dL (1.8-2.4); PHOSPHORUS 4.2 mg/dL (2.5-4.9)
[2019-04-15 08:00] VITALS: BP 120/75
--- NOTE | 2019-04-15 08:00 | NUR ---
RECEIVED PT. ALERT AND ORIENTED X3.NO COMPLAINTS OF ABD. DISCOMFORT,STATES HE HAS ARTHRITIC PAIN RT. HIP,DOES NOT WANT PAIN MED.
[2019-04-15] MEDS: ASPIRIN EC 81 MG TABLET.DR PO SCH (08:13)
[2019-04-15] MEDS: PANTOPRAZOLE 40 MG VIAL IV SCH (08:13)
[2019-04-15] MEDS: BUPROPION XL 150 MG TAB.ER.24 PO SCH (08:13)
[2019-04-15] MEDS: NICOTINE PATCH (7MG) 7 MG PATCH.TD24 TD SCH (08:14)
[2019-04-15] MEDS: ENOXAPARIN SODIUM 40 MG/0.4 ML DISP.SYRIN SQ SCH (08:15)
--- NOTE | 2019-04-15 09:00 | NUR ---
PULSE RECHECKED AND 56,DR. LI IN AND DC'D FLAGYL ON PRESCRIPTION.PAPERS MADE READY FOR DC.HEP LOCK REMOVED.PT. VERBALIZED ALL INSTRUCTIONS.
--- NOTE | 2019-04-15 09:15 | NUR ---
KIRSTIN BUS CARD AND ALL INFO. BELONGING SHEET SIGNED.TAKEN TO LOBBY FOR DC IN W/C.
== END 2019-04-15 09:15 | disposition home or self-care (01) | DRG 254 ==
LOC: ER 09:39 → MED 12:48
PROVIDERS: ADMIT Registered Nurse; ATTEND Student in an Organized Health Care Education/Training Program
DX: K62.89 Other specified diseases of anus and rectum (principal); A04.9 Bacterial intestinal infection, unspecified; D72.829 Elevated white blood cell count, unspecified; I10 Essential (primary) hypertension; E78.5 Hyperlipidemia, unspecified; Z86.73 Personal history of transient ischemic attack (TIA), and cerebral infarction without residual deficits; I25.10 Atherosclerotic heart disease of native coronary artery without angina pectoris; M48.00 Spinal stenosis, site unspecified; M19.90 Unspecified osteoarthritis, unspecified site; F25.9 Schizoaffective disorder, unspecified; F17.210 Nicotine dependence, cigarettes, uncomplicated; F31.9 Bipolar disorder, unspecified; G89.29 Other chronic pain; Z91.19 Patient's noncompliance with other medical treatment and regimen
CPT/HCPCS: 36415; 80048-TC; 80061-TC; 80076-TC; 82272-TC; 82378; 82728-TC; 83540-TC; 83690-TC; 83735-TC; 84100-TC; 84443-TC; 85025-TC; 87045-TC; 87081-TC; 87177; 87209; 89055; 92521; 92526; 97116-TC; 97530-TC; A4216; C9113; G0378; J1650; J2270; J2405; J2543; J3480; J3490; J7030; J7060